=== PATIENT | female | born 1970 | race Caucasian/White ===

== ENCOUNTER 2016-12-27 18:54 | Emergency (ER) | payer OTHER ==
[~2016-12-27] VITALS: Ht 157.5 cm; Wt 40.5 kg
[~2016-12-27 18:54] MED LIST: ACET500C5 PO; ALBU8.5H3 INH; CEPH-443 PO; CYCL-319 PO; IBUP-1542 PO; TRAM50TA2 PO
[2016-12-27 18:59] VITALS: Ht 157.5 cm; Wt 40.5 kg
--- NOTE | 2016-12-27 20:23 | ERD ---
ER Documentation Chief Complaint Date/Time DATE: 12/27/16 TIME: 20:19 Chief Complaint left breast pain x 4 days HPI Patient is a 46-year-old female who presents to the emergency department for concerns of left breast pain 4 days. Patient states she noticed a lump on her left breast 4 days ago. Patient states that she has felt lumps in her breast in the past. Patient denies any redness, swelling, warmth. Patient denies any fevers or chills. Patient denies any nipple discharge. Patient denies any chest pain, shortness of breath, nausea, vomiting or LOC. She denies receiving a mammogram in the past. Patient states her last menstrual period was on . ROS All systems reviewed and are negative except as per history of present illness. Medications Home Meds Active Scripts Cephalexin* (Keflex*) 500 Mg Capsule, 500 MG PO QID for 7 Days, CAP Prov:EDILMA NOVAK PA-C 12/03/15 Tramadol HCl (Tramadol HCl) 50 Mg Tablet, 50 MG PO Q4 Y for PAIN, #20 TAB Prov:EDILMA NOVAK PA-C 12/03/15 Cyclobenzaprine Hcl* (Cyclobenzaprine Hcl*) 10 Mg Tablet, 10 MG PO TID, #15 TAB Prov:EDILMA NOVAK PA-C 12/03/15 Acetaminophen* (Tylophen*) 500 Mg Capsule, 1 CAP PO Q6H Y for PAIN AND OR ELEVATED TEMP, #30 CAP Prov:REYES CASTANO PA-C 11/06/15 Ibuprofen* (Motrin*) 600 Mg Tab, 600 MG PO BID, #30 TAB 0 Refills Prov:ZOFIA MCCAIN PA-C 05/20/15 Albuterol Sulfate* (Proair HFA*) 8.5 Gm Hfa.aer.ad, 2 PUFF INH Q6, #1 INHALER 0 Refills Prov:ZOFIA MCCAIN PA-C 05/20/15 Allergies Allergies: Coded Allergies: Penicillins (Verified Allergy, Unknown, 11/06/15) REENTERED FROM ENTRY IN NON-ALLERGY FIELD iron (Unverified Allergy, Unknown, 11/06/15) PMhx/Soc History of Surgery: Yes (Jan Tubal Ligation) Anesthesia Reaction: No Hx Neurological Disorder: No Hx Respiratory Disorders: No Hx Cardiac Disorders: No Hx Psychiatric Problems: No Hx Miscellaneous Medical Probl: No Hx Alcohol Use: No Hx Substance Use: No Hx Tobacco Use: No Smoking Status: Never smoker FmHx Family History: No diabetes Physical Exam Vitals Vital Signs Date Time Temp Pulse Resp B/P Pulse Ox O2 Delivery O2 Flow Rate FiO2 12/27/16 18:59 98.7 102 20 142/78 98 Physical Exam GENERAL: Well-developed, well-nourished female. Appears in no acute distress. HEAD: Normocephalic, atraumatic. EYES: Pupils are equally reactive bilaterally. EOMs grossly intact. No conjunctival erythema. ENT: Moist mucous membranes. No uvula deviation. No kissing tonsils. NECK: Supple. No meningismus. Normal range of motion of the neck. LUNG: Clear to auscultation bilaterally. No rhonchi, wheezing, rales or coarse breath sounds. HEART: Regular rate and rhythm. No murmurs, rubs or gallops. CHEST WALL: Nontender to palpation. BREAST: 1 cm, movable lump palpable in the 4 o'clock position of the left breast. No lymphadenopathy palpable in the left axilla. Nonerythematous, no warmth. No nipple discharge or bleeding. Right breast with palpable lumps. EXTREMITIES: Equal pulses bilaterally. No peripheral clubbing, cyanosis or edema. No unilateral leg swelling. NEUROLOGIC: Alert and oriented. Moving all four extremities without any difficulty. Normal speech. Steady gait. SKIN: Normal color. Warm and dry. No rashes or lesions. Procedures/MDM MEDICAL DECISION MAKING: Patient is a 46-year-old female who presents to the ED with concerns of left breast lump 4 days.. Vital signs were reviewed. Patient is afebrile. Patient was not hypoxic. Left breast examination showed no signs of redness, or swelling. Patient had no nipple discharge or bleeding. Patient stated that she is unlikely to be given that she had bilateral tubal ligation many years ago. Patient declined urine test. At this time, patient presentation is most consistent with breast lump of unknown etiology. Low suspicion for abscess, mastitis, ACS, costochondritis. I explained to the patient that she will need to have a mammogram on an outpatient basis to determine the etiology of her breast lump. A this time I am unable to rule out malignancy. Patient understands and agrees with this plan. DISCHARGE: At this time, patient is stable for discharge and outpatient management. I have instructed the patient to follow-up with his/her primary care physician in 1-2 days. I have discussed with the patient the possibility of needing to see a specialist for further workup and imaging studies if symptoms persist. I have instructed the patient to promptly return to the ER for any new or worsening symptoms including increased pain, fever, nausea, vomiting, weakness or LOC. The patient and/or family expressed understanding of and agreement with this plan. All questions were answered. Home care instructions were provided. Disclaimer: Inadvertent spelling and grammatical errors are likely due to EHR/ dictation software use and do not reflect on the overall quality of patient care. Also, please note that the electronic time recorded on this note does not necessarily reflect the actual time of the patient encounter. Departure Diagnosis: Primary Impression: Breast lump Condition: Stable Patient Instructions: Breast Mass, Uncertain Cause Referrals: [facility] YOU HAVE RECEIVED A MEDICAL SCREENING EXAM AND THE RESULTS INDICATE THAT YOU DO NOT HAVE A CONDITION THAT REQUIRES URGENT TREATMENT IN THE EMERGENCY DEPARTMENT. FURTHER EVALUATION AND TREATMENT OF YOUR CONDITION CAN WAIT UNTIL YOU ARE SEEN IN YOUR DOCTORS OFFICE WITHIN THE NEXT 1-2 DAYS. IT IS YOUR RESPONSIBILITY TO MAKE AN APPOINTMENT FOR FOLOW-UP CARE. IF YOU HAVE A PRIMARY DOCTOR --you should call your primary doctor and schedule an appointment IF YOU DO NOT HAVE A PRIMARY DOCTOR YOU CAN CALL OUR PHYSICIAN REFERRAL HOTLINE AT IF YOU CAN NOT AFFORD TO SEE A PHYSICIAN YOU CAN CHOSE FROM THE FOLLOWING [facility] [address] [facility] [address] [facility]. [facility] [address] [facility] [address] [facility] [address] [facility]. [facility]. [address] [facility]. [facility] YOU HAVE RECEIVED A MEDICAL SCREENING EXAM AND THE RESULTS INDICATE THAT YOU DO NOT HAVE A CONDITION THAT REQUIRES URGENT TREATMENT IN THE EMERGENCY DEPARTMENT. FURTHER EVALUATION AND TREATMENT OF YOUR CONDITION CAN WAIT UNTIL YOU ARE SEEN IN YOUR DOCTORS OFFICE WITHIN THE NEXT 1-2 DAYS. IT IS YOUR RESPONSIBILITY TO MAKE AN APPOINTMENT FOR FOLOW-UP CARE. IF YOU HAVE A PRIMARY DOCTOR --you should call your primary doctor and schedule and appointment IF YOU DO NOT HAVE A PRIMARY DOCTOR YOU CAN CALL OUR PHYSICIAN REFERRAL HOTLINE AT . IF YOU CAN NOT AFFORD TO SEE A PHYSICIAN YOU CAN CHOSE FROM THE FOLLOWING [facility]: [facility] [address] [place] [address] [facility] [address] [place] [address] [facility] [address] [place] [address] [employer] [address] [facility] [address] [place] [address] OFFICE FAX SANGITA GUNTER [address] [place] [address] [address] [place] [address] [place] [address] [address] [address] [facility] [address] [address] [address] [place] [address] [facility] [address] [place] [address] [phone] [facility] [address] - [place], [facility] [address] [address] [address] [facility] [address], [facility] [address] [address] [address] [place] [address] Additional Instructions: Call your primary care doctor TOMORROW for an appointment during the next 1-2 days.See the doctor sooner or return here if your condition worsens before your appointment time. Follow up with your primary care physician for referral for a mammogram. Unable to rule out cancer at this time. You will need a mammogram to determine what the lump is. NAJMA BANKS PA-C Dec 27, 2016 20:23
== END 2016-12-27 20:34 | disposition home or self-care (01) ==
LOC: FTE 18:54
DX: N63.20 Unspecified lump in the left breast, unspecified quadrant (principal)
CPT/HCPCS: 99282

== ENCOUNTER 2017-04-29 10:46 | Emergency (ER) | END 2017-04-29 11:35 | disposition home or self-care (01) ==

== ENCOUNTER 2017-05-13 06:55 | Emergency (ER) | END 2017-05-13 07:38 | disposition home or self-care (01) ==

== ENCOUNTER 2018-06-15 18:17 | Emergency (ER) | payer SELFPAY ==
[~2018-06-15] VITALS: Ht 154.9 cm; Wt 42.0 kg
[~2018-06-15 18:17] MED LIST changes: +ACET-2047 PO; -ALBU8.5H3 INH; +ALBU8.5H8 INH; +BENZ-6 PO; +CETI1TAB6 PO; -CYCL-319 PO; +CYCL10TA7 PO
[2018-06-15 18:30] VITALS: BP 106/63; PULSE 84; RESP 18; Ht 154.9 cm; Wt 42.0 kg
--- NOTE | 2018-06-16 00:30 | ERD ---
ER Documentation Chief Complaint Chief Complaint DIZZINESS WITH 10/10 VALE X 1 WEEK HPI 47-year-old female, presents to the emergency department, complaining of headache and dizziness for 1 week. The patient denies distal weakness, numbness or tingling. No reports of fever, chills, blurred vision or rashes. ROS All systems reviewed and are negative except as per history of present illness. Medications Home Meds Active Scripts Benzonatate* (Tessalon Perle*) 100 Mg Capsule, 100 MG PO Q8H PRN for COUGH, #30 CAP Prov:VIOLETTE MITCHELL PA-C 05/13/17 Acetaminophen* (Acetaminophen*) 650 Mg Tablet, 650 MG PO Q6H PRN for PAIN AND OR ELEVATED TEMP, #30 TAB Prov:VIOLETTE MITCHELL PA-C 05/13/17 Cetirizine/Pseudoephedrine (Zyrtec-D) 5-120 Mg Tab.er.12h, 1 TAB PO Q12, #20 TAB Prov:VIOLETTE MITCHELL PA-C 05/13/17 Cephalexin* (Keflex*) 500 Mg Capsule, 500 MG PO QID for 7 Days, CAP Prov:EDILMA NOVAK PA-C 12/03/15 Tramadol HCl (Tramadol HCl) 50 Mg Tablet, 50 MG PO Q4 PRN for PAIN, #20 TAB Prov:EDILMA NOVAK PA-C 12/03/15 Cyclobenzaprine Hcl* (Cyclobenzaprine Hcl*) 10 Mg Tablet, 10 MG PO TID, #15 TAB Prov:EDILMA NOVAK PA-C 12/03/15 Acetaminophen* (Tylophen*) 500 Mg Capsule, 1 CAP PO Q6H PRN for PAIN AND OR ELEVATED TEMP, #30 CAP Prov:REYES CASTANO PA-C 11/06/15 Ibuprofen* (Motrin*) 600 Mg Tab, 600 MG PO BID, #30 TAB 0 Refills Prov:ZOFIA MCCAIN PA-C 05/20/15 Albuterol Sulfate* (Proair HFA*) 8.5 Gm Hfa.aer.ad, 2 PUFF INH Q6, #1 INHALER 0 Refills Prov:ZOFIA MCCAIN PA-C 05/20/15 Allergies Allergies: Coded Allergies: Penicillins (Verified Allergy, Unknown, 11/06/15) REENTERED FROM ENTRY IN NON-ALLERGY FIELD iron (Unverified Allergy, Unknown, 11/06/15) PMhx/Soc History of Surgery: Yes (Jan Tubal Ligation) Anesthesia Reaction: No Hx Neurological Disorder: No Hx Respiratory Disorders: No Hx Cardiac Disorders: No Hx Psychiatric Problems: No Hx Miscellaneous Medical Probl: No Hx Alcohol Use: No Hx Substance Use: No Hx Tobacco Use: No FmHx Family History: diabetes; No coronary disease Physical Exam Vitals Vital Signs Date Temp Pulse Resp B/P (MAP) Pulse Ox O2 O2 Flow FiO2 Time Delivery Rate 06/15/18 98.3 84 18 106/63 100 18:30 (77) Physical Exam Const: No acute distress Head: Atraumatic Eyes: Normal Conjunctiva ENT: Normal External Ears, Nose and Mouth. Neck: Full range of motion. No meningismus. Resp: Clear to auscultation bilaterally Cardio: Regular rate and rhythm, no murmurs Abd: Soft, non tender, non distended. Normal bowel sounds Skin: No petechiae or rashes Back: No midline or flank tenderness Ext: No cyanosis, or edema Neur: Awake and alert Psych: Normal Mood and Affect Result Diagram: 06/16/18 0053 06/16/18 0053 Results 24 hrs Laboratory Tests Test 06/16/18 00:51 06/16/18 00:53 Bedside Urine pH (LAB) 7.0 Bedside Urine Protein (LAB) Negative Bedside Urine Glucose (UA) Negative Bedside Urine Ketones (LAB) 1+ Bedside Urine Blood Negative Bedside Urine Nitrite (LAB) Negative Bedside Urine Leukocyte Esterase (L Negative White Blood Count 5.9 10^3/ul Red Blood Count 4.05 10^6/ul Hemoglobin 9.3 g/dl Hematocrit 31.2 % Mean Corpuscular Volume 77.0 fl Mean Corpuscular Hemoglobin 23.0 pg Mean Corpuscular Hemoglobin Concent 29.8 g/dl Red Cell Distribution Width 15.8 % Platelet Count 361 10^3/UL Mean Platelet Volume 8.8 fl Immature Granulocytes % 0.200 % Neutrophils % 50.6 % Lymphocytes % 36.9 % Monocytes % 8.0 % Eosinophils % 3.4 % Basophils % 0.9 % Nucleated Red Blood Cells % 0.0 /100WBC Immature Granulocytes # 0.010 10^3/ul Neutrophils # 3.0 10^3/ul Lymphocytes # 2.2 10^3/ul Monocytes # 0.5 10^3/ul Eosinophils # 0.2 10^3/ul Basophils # 0.1 10^3/ul Nucleated Red Blood Cells # 0.0 10^3/ul Sodium Level 139 mmol/L Potassium Level 3.9 mmol/L Chloride Level 102 mmol/L Carbon Dioxide Level 24 mmol/L Anion Gap 13 Blood Urea Nitrogen 15 mg/dl Creatinine 0.60 mg/dl Est Glomerular Filtrat Rate mL/min > 60 mL/min Glucose Level 86 mg/dl Calcium Level 8.8 mg/dl POC Beta HCG, Qualitative NEGATIVE Departure Diagnosis: Primary Impression: Anemia Condition: Stable Additional Instructions: Muchas sadaf por [facility] para [place] servicio. Esperamos que en [place] visita a la apollo de emergencia [place] problema medico haya sido solucionado y que se sienta mucho mejor. Para estar seguros que [place] mejoria sigue en proceso, le pedimos el favor de hacer taya isra de seguimiento medico con [place] doctor primario en los proximos 2-4 rodgers. Lleve con usted estos documentos y las medicinas recetadas. Si kymberly sintomas empeoran, NO SE ESPERE, por favor regrese a apollo de emergencia INMEDIATAMENTE. En pamela que usted no tenga un mdico de atencin primaria: Llame al mdico o clnica comunitaria de referencia que aparece abajo sergio las horas de consultorio para hacer taya isra para que le vean. CLINICAS: [facility] [phone] [facility] [phone] [address] [facility] [phone] [address] [facility] [phone] [facility] [phone] [facility]. [phone] [place] Jun 16, 2018 00:30
== END 2018-06-16 02:12 | disposition home or self-care (01) ==
LOC: FTE 18:17
DX: D64.9 Anemia, unspecified (principal)
CPT/HCPCS: 36415; 80048; 81003; 81025; 85025; 99283